=== PATIENT | female | born 1950 | race Caucasian/White ===

== ENCOUNTER → 2020-05-13 | Outpatient (CLI) | payer OTHER, MEDICARE ==
[~2020-05-13] MED LIST: ASPIR 8181 MG PO; CALCIUM500 M1 PO; CO Q-10100 MG PO; COZAAR 25 MG TA25 M1 PO; IBUPROFEN 200200 M1; IBUPROFEN 200200 M1 PO; LEVOTHYROXIN0.112 M1 PO; MAXZIDE-25 MG1 EACH PO; MULTI-DAY VITA1 EACH PO; OCUVITE EYE +1 EACH PO; OSTEO BI-FLEX1 EAC1 PO; PRADAXA150 MG PO
== END ==
LOC: SJCVC 13:14
PROVIDERS: ATTEND Internal Medicine Cardiovascular Disease
DX: R07.9 Chest pain, unspecified (principal); I10 Essential (primary) hypertension; E78.5 Hyperlipidemia, unspecified; I47.1 Supraventricular tachycardia; Z82.49 Family history of ischemic heart disease and other diseases of the circulatory system

== ENCOUNTER → 2020-06-10 | Outpatient (CLI) | payer OTHER, MEDICARE | LOC: SJCVCIMAG 08:37 | PROVIDERS: ATTEND Internal Medicine | DX: I11.9 Hypertensive heart disease without heart failure (principal); I08.8 Other rheumatic multiple valve diseases; R00.1 Bradycardia, unspecified; I47.1 Supraventricular tachycardia; E78.5 Hyperlipidemia, unspecified; E66.9 Obesity, unspecified; Z79.82 Long term (current) use of aspirin; Z79.899 Other long term (current) drug therapy; Z82.49 Family history of ischemic heart disease and other diseases of the circulatory system; Z98.890 Other specified postprocedural states ==

== ENCOUNTER → 2021-06-10 | Outpatient (CLI) | payer OTHER, MEDICARE | LOC: SJCVC 12:53 | PROVIDERS: ATTEND Internal Medicine | DX: I10 Essential (primary) hypertension (principal); E78.5 Hyperlipidemia, unspecified; I47.1 Supraventricular tachycardia; D68.51 Activated protein C resistance; R07.9 Chest pain, unspecified; Z88.2 Allergy status to sulfonamides; Z88.8 Allergy status to other drugs, medicaments and biological substances; Z79.82 Long term (current) use of aspirin; Z72.89 Other problems related to lifestyle; Z79.899 Other long term (current) drug therapy ==

== ENCOUNTER → 2021-06-26 | Outpatient (CLI) | payer OTHER, MEDICARE | END | disposition home or self-care (01) | LOC: ULTRA 14:30 | PROVIDERS: ATTEND Internal Medicine | DX: D68.51 Activated protein C resistance (principal) ==